=== PATIENT | male | born 1955 | race Caucasian/White ===

== ENCOUNTER 2018-11-04 10:07 | Emergency (ER) | payer OTHER, MEDICARE ==
[2018-11-04 10:12] VITALS: BP 156/91; RESP 18; TEMP 98.3
--- NOTE | 2018-11-04 10:53 | ED ---
General Adult HPI - General Chief complaint: Urogenital Stated complaint: Male Time Seen by Provider: 11/04/18 10:27 Source: patient, RN notes reviewed, old records reviewed Mode of arrival: wheelchair Limitations: no limitations - History of Present Illness Initial comments: 63-year-old male patient with past medical history significant for end-stage l iver disease secondary to chronic hepatitis C presents ED chief complaint of constipation, greater than 2 weeks since a bowel movement reportedly, swelling of testicles which has been ongoing for 3 days. Patient denies any testicular pain. Patient also reports some difficulty urinating. Patient denies any chest pain or shortness of breath. Patient reports some very mild waxing and waning pain in the suprapubic left lower quadrant regions, denies any current pain. Systemic: Pt denies fatigue, fever/chills, rash. Pt denies weakness, night sweats, weight loss. Neuro: Pt denies headache, visual disturbances, syncope or pre-syncope. HEENT: Pt denies ocular discharge or irritation, otalgia, rhinorrhea, pharyngitis or notable lymphadenopathy. Cardiopulmonary: Pt denies chest pain, SOB, heart palpitations, dyspnea on exertion. Abdominal/GI: Pt denies n/v/d. : Pt denies dysuria, burning w/ urination, frequency/urgency. Denies new onset urinary or bowel incontinence. MSK: Pt denies myalgia, loss of strength or function in extremities. Neuro: Pt denies new onset weakness, paresthesias. - Related Data Home Medications Medication Instructions Recorded Confirmed No Known Home Medications 11/04/18 11/04/18 Allergies Allergy/AdvReac Type Severity Reaction Status Date / Time No Known Allergies Allergy Verified 11/04/18 10:31 Review of Systems ROS Statement: Those systems with pertinent positive or pertinent negative responses have been documented in the HPI. ROS Other: All systems not noted in ROS Statement are negative. Past Medical History Past Medical History: Liver Disease, Renal Disease Additional Past Medical History / Comment(s): enlarged prostate History of Any Multi-Drug Resistant Organisms: None Reported Past Surgical History: Cholecystectomy Past Psychological History: No Psychological Hx Reported Smoking Status: Current every day smoker Past Alcohol Use History: Occasional Past Drug Use History: Marijuana General Exam - General Exam Comments Initial Comments: Constitutional: NAD, AOX3, Pt has pleasant affect. HEENT: NC/AT, trachea midline, neck supple, no lymphadenopathy. Posterior pharynx non erythematous, without exudates. External ears appear normal, without discharge. Mucous membranes moist. Eyes PERRLA, EOM intact. There is no scleral icterus. No pallor noted. Cardiopulmonary: RRR, no murmurs, rubs or gallops, no JVD noted. Lungs CTAB in anterior and posterior ellison. No peripheral edema. Abdominal exam: Abdomen soft and non-distended. Abdomen non-tender to palpation in all 4 quadrants. Bowel sounds active in LLQ. No hepatosplenomegaly. No ecchymosis Neuro: CN II-XII grossly intact. No nuchal rigidity. No raccon eyes, no appiah sign, no hemotympanum. No cervical spinal tenderness. MSK: No posterior calf tenderness bilaterally, homans sign negative bilaterally. Posterior tibialis and radial pulse +2 bilaterally. Sensation intact in upper and lower extremities. Full active ROM in upper and lower extremities, 5/5 stregnth. : Edematous scrotum, nontender, no blue dot sign, no masses. Limitations: no limitations Course Vital Signs 11/04/18 11/04/18 10:09 12:01 Temperature 98.3 F Pulse Rate 102 H Respiratory 18 18 Rate Blood Pressure 156/91 O2 Sat by Pulse 98 Oximetry Medical Decision Making - Medical Decision Making 63-year-old male patient with past medical history significant for end-stage liver disease secondary to chronic hepatitis C presents ED chief complaint of constipation, greater than 2 weeks since a bowel movement reportedly, swelling of testicles which has been ongoing for 3 days. Patient denies any testicular pain. Patient also reports some difficulty urinating. Patient denies any chest pain or shortness of breath. Patient reports some very mild waxing and waning pain in the suprapubic left lower quadrant regions, denies any current pain. Patient vital signs stable, afebrile. Physical exam displayed edematous scrotum, nontender. CBC noncompressive. CMP revealed elevated earlier been, liver enzymes. Lactic acid 3.8. UA displayed +2 bilirubin. Patient was rehydrated. CBC displayed no acute process. Scrotal ultrasound displayed diffuse scrotal edema seen of film a mild right hydrocele, no other focal fluid collection, benign epididymal cysts in the left. No evidence of torsion. Patient likely experiencing dependent edema. Patient will discharge with close outpatient follow-up. Case discussed in depth with Dr. Neely. - Lab Data Result diagrams: 11/04/18 11:10 11/04/18 11:10 Lab Results 11/04/18 11/04/18 11/04/18 Range/Units 11:10 11:10 11:10 WBC 8.2 (3.8-10.6) k/uL RBC 3.94 L (4.30-5.90) m/uL Hgb 13.7 (13.0-17.5) gm/dL Hct 40.7 (39.0-53.0) % MCV 103.5 H (80.0-100.0) fL MCH 34.8 (25.0-35.0) pg MCHC 33.7 (31.0-37.0) g/dL RDW 18.9 H (11.5-15.5) % Plt Count 147 L (150-450) k/uL Neutrophils % 76 % Lymphocytes % 13 % Monocytes % 6 % Eosinophils % 1 % Basophils % 0 % Neutrophils # 6.2 (1.3-7.7) k/uL Lymphocytes # 1.0 (1.0-4.8) k/uL Monocytes # 0.5 (0-1.0) k/uL Eosinophils # 0.1 (0-0.7) k/uL Basophils # 0.0 (0-0.2) k/uL Anisocytosis Slight Macrocytosis Moderate PT (9.0-12.0) sec INR (<1.2) APTT (22.0-30.0) sec Sodium 136 L (137-145) mmol/L Potassium 3.9 (3.5-5.1) mmol/L Chloride 104 (98-107) mmol/L Carbon Dioxide 23 (22-30) mmol/L Anion Gap 9 mmol/L BUN 11 (9-20) mg/dL Creatinine 0.68 (0.66-1.25) mg/dL Est GFR (CKD-EPI)AfAm >90 (>60 ml/min/1.73 sqM) Est GFR (CKD-EPI)NonAf >90 (>60 ml/min/1.73 sqM) Glucose 120 H (74-99) mg/dL Plasma Lactic Acid Saul 3.8 H* (0.7-2.0) mmol/L Calcium 8.0 L (8.4-10.2) mg/dL Total Bilirubin 6.9 H (0.2-1.3) mg/dL AST 129 H (17-59) U/L ALT 48 (21-72) U/L Alkaline Phosphatase 294 H (38-126) U/L Total Protein 6.9 (6.3-8.2) g/dL Albumin 2.3 L (3.5-5.0) g/dL Lipase 216 (23-300) U/L Urine Color Urine Appearance (Clear) Urine pH (5.0-8.0) Ur Specific [place] (1.001-1.035) Urine Protein (Negative) Urine Glucose (UA) (Negative) Urine Ketones (Negative) Urine Blood (Negative) Urine Nitrite (Negative) Urine Bilirubin (Negative) Urine Urobilinogen (<2.0) mg/dL Ur Leukocyte Esterase (Negative) Urine RBC (0-5) /hpf Urine WBC (0-5) /hpf Ur Squamous Epith Cells (0-4) /hpf Urine Mucus (None) /hpf 11/04/18 11/04/18 Range/Units 11:10 13:20 WBC (3.8-10.6) k/uL RBC (4.30-5.90) m/uL Hgb (13.0-17.5) gm/dL Hct (39.0-53.0) % MCV (80.0-100.0) fL MCH (25.0-35.0) pg MCHC (31.0-37.0) g/dL RDW (11.5-15.5) % Plt Count (150-450) k/uL Neutrophils % % Lymphocytes % % Monocytes % % Eosinophils % % Basophils % % Neutrophils # (1.3-7.7) k/uL Lymphocytes # (1.0-4.8) k/uL Monocytes # (0-1.0) k/uL Eosinophils # (0-0.7) k/uL Basophils # (0-0.2) k/uL Anisocytosis Macrocytosis PT 15.8 H (9.0-12.0) sec INR 1.6 H (<1.2) APTT 28.6 (22.0-30.0) sec Sodium (137-145) mmol/L Potassium (3.5-5.1) mmol/L Chloride (98-107) mmol/L Carbon Dioxide (22-30) mmol/L Anion Gap mmol/L BUN (9-20) mg/dL Creatinine (0.66-1.25) mg/dL Est GFR (CKD-EPI)AfAm (>60 ml/min/1.73 sqM) Est GFR (CKD-EPI)NonAf (>60 ml/min/1.73 sqM) Glucose (74-99) mg/dL Plasma Lactic Acid Saul (0.7-2.0) mmol/L Calcium (8.4-10.2) mg/dL Total Bilirubin (0.2-1.3) mg/dL AST (17-59) U/L ALT (21-72) U/L Alkaline Phosphatase (38-126) U/L Total Protein (6.3-8.2) g/dL Albumin (3.5-5.0) g/dL Lipase (23-300) U/L Urine Color Dark Brown Urine Appearance Cloudy (Clear) Urine pH 6.0 (5.0-8.0) Ur Specific [place] 1.024 (1.001-1.035) Urine Protein Trace H (Negative) Urine Glucose (UA) Negative (Negative) Urine Ketones Trace H (Negative) Urine Blood Small H (Negative) Urine Nitrite Negative (Negative) Urine Bilirubin 2+ H (Negative) Urine Urobilinogen >12.0 (<2.0) mg/dL Ur Leukocyte Esterase Trace H (Negative) Urine RBC 2 (0-5) /hpf Urine WBC 2 (0-5) /hpf Ur Squamous Epith Cells 2 (0-4) /hpf Urine Mucus Many H (None) /hpf Disposition Clinical Impression: Scrotal edema Disposition: HOME SELF-CARE Condition: Stable Instructions (If sedation given, give patient instructions): Hydrocele (ED) Additional Instructions: Patient to adhere to previously discussed treatment plan and will take medication(s) as directed. Patient to follow up with PCP in 1-2 days. Patient to return to ED if symptoms do not improve. Follow-up with primary care provider and your liver doctor tomorrow. Return to ER if condition worsens. Is patient prescribed a controlled substance at d/c from ED?: No Referrals: Ravindra Miguel DO [Primary Care Provider] - 1-2 days
--- NOTE | 2018-11-04 11:22 | XR ---
EXAMINATION TYPE: XR KUB DATE OF EXAM: 11/04/2018 11:16 AM CLINICAL HISTORY: Abdominal pain constipation for 2 weeks with history of nephrolithiasis TECHNIQUE: Single upright of the abdomen is obtained. COMPARISON: None. FINDINGS: Exam is limited secondary to patient body habitus. Cholecystectomy clips are seen in the ri ght upper quadrant. There is a mild levoscoliosis of the lumbar spine. No suspicious calcifications a re seen in the abdomen or pelvis although there is slight limitation again due to patient body habitu s. No dilated large or small bowel. Lung bases are well aerated. Degenerative changes of the spine an d hips are noted. IMPRESSION: Nonobstructive bowel gas pattern. No suspicious calcifications are seen in the abdomen or pelvis in this patient with nephrolithiasis however the exam is slightly limited secondary to patien t body habitus.
[2018-11-04 11:36] LABS: INR 1.6 (<1.2); Partial Thromboplastin Time 28.6 sec (22.0-30.0); Prothrombin Time 15.8 sec (9.0-12.0)
[2018-11-04 11:42] LABS: ALT 48 U/L (21-72); AST 129 U/L (17-59); African American GFR (CKD) >90 (>60 ml/min/1.73 sqM); Albumin 2.3 g/dL (3.5-5.0); Alkaline Phosphatase 294 U/L (38-126); Anion Gap 9 mmol/L; Blood Urea Nitrogen 11 mg/dL (9-20); Carbon Dioxide 23 mmol/L (22-30); Chloride 104 mmol/L (98-107); Glucose 120 mg/dL (74-99); Potassium 3.9 mmol/L (3.5-5.1); Sodium 136 mmol/L (137-145); Total Bilirubin 6.9 mg/dL (0.2-1.3); Total Protein 6.9 g/dL (6.3-8.2)
[2018-11-04 11:48] LABS: Anisocytosis Slight; Basophils % (A) 0 %; Eosinophils # (A) 0.1 k/uL (0-0.7); Eosinophils % (A) 1 %; HCT 40.7 % (39.0-53.0); HGB 13.7 gm/dL (13.0-17.5); Lymphocytes % (A) 13 %; MCH 34.8 pg (25.0-35.0); MCHC 33.7 g/dL (31.0-37.0); MCV 103.5 fL (80.0-100.0); Macrocytosis Moderate; Monocytes # (A) 0.5 k/uL (0-1.0); Monocytes % (A) 6 %; Neutrophils # (A) 6.2 k/uL (1.3-7.7); Neutrophils % (A) 76 %; Platelet Count 147 k/uL (150-450); RBC 3.94 m/uL (4.30-5.90); RDW 18.9 % (11.5-15.5); WBC 8.2 k/uL (3.8-10.6)
[2018-11-04] MEDS ORDERED: SODIUM CHLORIDE 0.9% 1,000 ML IV STA (12:12)
--- NOTE | 2018-11-04 12:24 | US ---
EXAMINATION TYPE: US scrotum with doppler. Grayscale and color Doppler Duplex imaging performed of argelia szymanski scrotum. DATE OF EXAM: 11/04/2018 COMPARISON: NONE CLINICAL HISTORY: swelling pain . Bilateral scrotal swelling EXAM MEASUREMENTS: TESTICLES: Right Testicle: 3.4 x 2.2 x 2.1 cm Left Testicle: 3.2 x 1.8 x 2.2 cm EPIDIDYMIS HEAD: Right Epididymis: 0.8 cm Doppler performed to assess for testicular vascularity; good bilateral color flow and waveforms are s een. There is no evidence of testicular torsion. Bilateral scrotal edema, left epididymal cyst= 1.8 x 1.6 x 1.5 cm Mild right hydrocele is seen. Diffuse scrotal edema. IMPRESSION: Diffuse scrotal edema is seen with only mild right hydrocele no other focal fluid collect ion. Benign epididymal cyst is seen on the left. No sonographic evidence of testicular torsion.
[2018-11-04 14:10] LABS: Appearance,Urine Cloudy (Clear); Bilirubin,Urine 2+ (Negative); Blood,Urine Small (Negative); Color,Urine Dark Brown; Glucose,Urine (UA) Negative (Negative); Ketones,Urine Trace (Negative); Leukocyte Esterase,Urine Trace (Negative); Mucus,Urine Many /hpf; Nitrite,Urine Negative (Negative); Protein,Urine Trace (Negative); RBC,Urine 2 /hpf (0-5); Specific Gravity,Urine 1.024 (1.001-1.035); Squamous Epithelial Cell,Urine 2 /hpf (0-4); Urobilinogen,Urine >12.0 mg/dL (<2.0); WBC,Urine 2 /hpf (0-5)
[2018-11-04 14:59] VITALS: PULSE 17
== END 2018-11-04 14:59 | disposition home or self-care (01) ==
LOC: EC 10:07
DX: N50.89 Other specified disorders of the male genital organs (principal); N43.3 Hydrocele, unspecified; N50.3 Cyst of epididymis; F17.200 Nicotine dependence, unspecified, uncomplicated
CPT/HCPCS: 36415; 74018; 76870; 80053; 81001; 83605; 83690; 85025; 85610; 85730; 93975; 96360; 96361; 99284

== ENCOUNTER 2018-11-13 09:57 | Emergency (ER) | payer OTHER, MEDICARE ==
[2018-11-13] MEDS ORDERED: MORPHINE SULFATE 4 MG/ML SYRINGE IVP STA (10:40)
[2018-11-13] MEDS ORDERED: ONDANSETRON 4 MG/2 ML VIAL IVP STA (10:40)
--- NOTE | 2018-11-13 10:48 | ED ---
Male Urogenital HPI - General Chief complaint: Urogenital Stated complaint: Male Time Seen by Provider: 11/13/18 10:12 Source: patient Mode of arrival: wheelchair Limitations: no limitations - History of Present Illness Initial comments: Patient is a 63-year-old male presenting to the emergency Department with complaints of scrotal swelling times one to 2 weeks now. Patient has past medical history of end-stage liver disease secondary to chronic hepatitis C. Patient was in the ER approximately 1 week ago for same issue. Patient did have an ultrasound performed that shows no signs of testicular torsion, diffuse scrotal edema with only a mild right hydrocele. Patient states he followed up with his PCP on Friday, Dr. Miguel, who started him on spironolactone twice a day. Patient states the medication is not working and he is having an increase amount of discomfort and pain secondary to his large scrotum. Patient denies any fever, chills, vomiting, diarrhea. Patient has no other recent changes in medications. Patient denies chest pain. Patient does admit to some mild shortness of breath secondary to pain. Patient has no other complaints at this time. Upon arrival to ER, vital signs are normal. - Related Data Home Medications Medication Instructions Recorded Confirmed No Known Home Medications 11/04/18 11/13/18 Allergies Allergy/AdvReac Type Severity Reaction Status Date / Time No Known Allergies Allergy Verified 11/13/18 10:17 Review of Systems ROS Statement: Those systems with pertinent positive or pertinent negative responses have been documented in the HPI. ROS Other: All systems not noted in ROS Statement are negative. Past Medical History Past Medical History: Liver Disease, Renal Disease Additional Past Medical History / Comment(s): enlarged prostate History of Any Multi-Drug Resistant Organisms: None Reported Past Surgical History: Cholecystectomy Past Psychological History: No Psychological Hx Reported Smoking Status: Current every day smoker Past Alcohol Use History: Occasional Past Drug Use History: Marijuana General Exam - General Exam Comments Initial Comments: GENERAL: Patient appears fatigued, frustrated, and mild distress secondary to pain. HEAD: Atraumatic, normocephalic. EYES: Pupils equal round and reactive to light, extraocular movements intact, sclera anicteric, conjunctiva are normal. ENT: TMs normal, nares patent, oropharynx clear without exudates. Moist mucous membranes. NECK: Normal range of motion, supple without lymphadenopathy or JVD. LUNGS: Breath sounds clear to auscultation bilaterally and equal. No wheezes rales or rhonchi. HEART: Regular rate and rhythm without murmurs, rubs or gallops. ABDOMEN: Soft, nontender, normoactive bowel sounds. No guarding, no rebound. No masses appreciated. EXTREMITIES: Patient has 2+ pitting edema bilateral lower extremities, right greater than left. Neurovascular intact, confirmed with Doppler on dorsal pedis. No clubbing or cyanosis. NEUROLOGICAL: Cranial nerves II through XII grossly intact. Normal speech, normal gait. PSYCH: Patient is frustrated with condition, teary eyed during exam. SKIN: Warm, Dry, normal turgor. Patient has a large Limitations: no limitations exam: Present: scrotal swelling (Large amount of scrotal swelling). Absent: urethral discharge External exam: Present: erythema (Mild erythema), swelling. Absent: lesions, lacerations, ecchymosis Course Vital Signs 11/13/18 11/13/18 11/13/18 09:59 10:02 11:44 Temperature 98.0 F 97.0 F L Pulse Rate 105 H 86 95 Respiratory 22 28 H 22 Rate Blood Pressure 135/74 142/74 143/73 O2 Sat by Pulse 99 96 96 Oximetry 11/13/18 11/13/18 13:43 14:57 Temperature 98.0 F Pulse Rate 88 93 Respiratory 18 18 Rate Blood Pressure 128/65 127/67 O2 Sat by Pulse 97 100 Oximetry Medical Decision Making - Medical Decision Making Patient is a 63-year-old male presenting with an increase in scrotal swelling times one to 2 weeks. Patient was in the ER approximately 1 week ago for same issue. Patient did have ultrasound at that time and showed no signs of testicular torsion, mild hydrocele. Patient states he saw his PCP on Friday and started him on spironolactone twice a day. Patient states this is not improving him symptoms. Patient states he has a hard time using the restroom and just sitting secondary to his large scrotum. On exam patient has a large amount of scrotal swelling, mild erythema and irritation of the scrotal sac. Patient has 2+ pitting edema in both lower extremities. Neurovascular intact. Patient is teary-eyed and frustrated on exam. Vital signs are within normal limits. CBC, CMP are not impressive. Patient's lactic acid was 3.7. Patient was given fluids. Patient continues to have elevated liver enzymes. UA shows no signs of infection. Case was discussed with Dr. Lloyd. Discussed with patient that his symptoms are secondary to his liver failure. It was discussed that he needs to follow up with his PCP and patient was also given a referral to urology. Patient is very frustrated with this recommendation and that there is nothing to do today. Patient will continue with his spironolactone. Return parameters were discussed with the patient he verbalizes understanding. Patient is stable for discharge at this time. - Lab Data Result diagrams: 11/13/18 12:05 11/13/18 12:05 Lab Results 11/13/18 11/13/18 11/13/18 Range/Units 12:05 12:05 12:05 WBC 10.0 (3.8-10.6) k/uL RBC 4.03 L (4.30-5.90) m/uL Hgb 13.6 (13.0-17.5) gm/dL Hct 41.2 (39.0-53.0) % MCV 102.3 H (80.0-100.0) fL MCH 33.8 (25.0-35.0) pg MCHC 33.1 (31.0-37.0) g/dL RDW 17.6 H (11.5-15.5) % Plt Count 114 L (150-450) k/uL Neutrophils % 74 % Lymphocytes % 10 % Monocytes % 10 % Eosinophils % 1 % Basophils % 1 % Neutrophils # 7.4 (1.3-7.7) k/uL Lymphocytes # 1.0 (1.0-4.8) k/uL Monocytes # 1.0 (0-1.0) k/uL Eosinophils # 0.1 (0-0.7) k/uL Basophils # 0.1 (0-0.2) k/uL Anisocytosis Slight Macrocytosis Moderate PT 16.0 H (9.0-12.0) sec INR 1.6 H (<1.2) APTT 31.3 H (22.0-30.0) sec Sodium 134 L (137-145) mmol/L Potassium 3.7 (3.5-5.1) mmol/L Chloride 101 (98-107) mmol/L Carbon Dioxide 24 (22-30) mmol/L Anion Gap 9 mmol/L BUN 24 H (9-20) mg/dL Creatinine 0.74 (0.66-1.25) mg/dL Est GFR (CKD-EPI)AfAm >90 (>60 ml/min/1.73 sqM) Est GFR (CKD-EPI)NonAf >90 (>60 ml/min/1.73 sqM) Glucose 127 H (74-99) mg/dL Lactic Ac Sepsis Rflx Plasma Lactic Acid Saul (0.7-2.0) mmol/L Calcium 8.0 L (8.4-10.2) mg/dL Total Bilirubin 6.8 H (0.2-1.3) mg/dL AST 148 H (17-59) U/L ALT 54 (21-72) U/L Alkaline Phosphatase 256 H (38-126) U/L Total Protein 6.9 (6.3-8.2) g/dL Albumin 2.3 L (3.5-5.0) g/dL Amylase 50 (30-110) U/L Lipase 276 (23-300) U/L Urine Color Urine Appearance (Clear) Urine pH (5.0-8.0) Ur Specific [place] (1.001-1.035) Urine Protein (Negative) Urine Glucose (UA) (Negative) Urine Ketones (Negative) Urine Blood (Negative) Urine Nitrite (Negative) Urine Bilirubin (Negative) Urine Urobilinogen (<2.0) mg/dL Ur Leukocyte Esterase (Negative) Urine RBC (0-5) /hpf Urine WBC (0-5) /hpf Ur Squamous Epith Cells (0-4) /hpf Urine Bacteria (None) /hpf Urine Mucus (None) /hpf 11/13/18 11/13/18 11/13/18 Range/Units 12:05 13:21 13:45 WBC (3.8-10.6) k/uL RBC (4.30-5.90) m/uL Hgb (13.0-17.5) gm/dL Hct (39.0-53.0) % MCV (80.0-100.0) fL MCH (25.0-35.0) pg MCHC (31.0-37.0) g/dL RDW (11.5-15.5) % Plt Count (150-450) k/uL Neutrophils % % Lymphocytes % % Monocytes % % Eosinophils % % Basophils % % Neutrophils # (1.3-7.7) k/uL Lymphocytes # (1.0-4.8) k/uL Monocytes # (0-1.0) k/uL Eosinophils # (0-0.7) k/uL Basophils # (0-0.2) k/uL Anisocytosis Macrocytosis PT (9.0-12.0) sec INR (<1.2) APTT (22.0-30.0) sec Sodium (137-145) mmol/L Potassium (3.5-5.1) mmol/L Chloride (98-107) mmol/L Carbon Dioxide (22-30) mmol/L Anion Gap mmol/L BUN (9-20) mg/dL Creatinine (0.66-1.25) mg/dL Est GFR (CKD-EPI)AfAm (>60 ml/min/1.73 sqM) Est GFR (CKD-EPI)NonAf (>60 ml/min/1.73 sqM) Glucose (74-99) mg/dL Lactic Ac Sepsis Rflx Y Plasma Lactic Acid Saul 3.7 H* (0.7-2.0) mmol/L Calcium (8.4-10.2) mg/dL Total Bilirubin (0.2-1.3) mg/dL AST (17-59) U/L ALT (21-72) U/L Alkaline Phosphatase (38-126) U/L Total Protein (6.3-8.2) g/dL Albumin (3.5-5.0) g/dL Amylase (30-110) U/L Lipase (23-300) U/L Urine Color Dark Brown Urine Appearance Turbid (Clear) Urine pH 5.5 (5.0-8.0) Ur Specific [place] 1.025 (1.001-1.035) Urine Protein Trace H (Negative) Urine Glucose (UA) Negative (Negative) Urine Ketones Negative (Negative) Urine Blood Moderate H (Negative) Urine Nitrite Negative (Negative) Urine Bilirubin 2+ H (Negative) Urine Urobilinogen 12.0 (<2.0) mg/dL Ur Leukocyte Esterase Trace H (Negative) Urine RBC 17 H (0-5) /hpf Urine WBC 3 (0-5) /hpf Ur Squamous Epith Cells 1 (0-4) /hpf Urine Bacteria Rare H (None) /hpf Urine Mucus Few H (None) /hpf Disposition Clinical Impression: Scrotal edema, Chronic hepatitis, Hydrocele Disposition: HOME SELF-CARE Condition: Stable Instructions (If sedation given, give patient instructions): Hydrocele (ED) Additional Instructions: Please return to the Emergency Department if symptoms worsen or any other concerns. Follow-up with urology as discussed today or tomorrow. Follow-up with Dr. Miguel. Is patient prescribed a controlled substance at d/c from ED?: No Referrals: Ravindra Miguel DO [Primary Care Provider] - 1-2 days Zeus Chaudhary MD [STAFF PHYSICIAN] - 1-2 days
[2018-11-13 12:27] LABS: Anisocytosis Slight; Basophils # (A) 0.1 k/uL (0-0.2); Basophils % (A) 1 %; Eosinophils # (A) 0.1 k/uL (0-0.7); Eosinophils % (A) 1 %; HCT 41.2 % (39.0-53.0); HGB 13.6 gm/dL (13.0-17.5); Lymphocytes % (A) 10 %; MCH 33.8 pg (25.0-35.0); MCHC 33.1 g/dL (31.0-37.0); MCV 102.3 fL (80.0-100.0); Macrocytosis Moderate; Monocytes % (A) 10 %; Neutrophils # (A) 7.4 k/uL (1.3-7.7); Neutrophils % (A) 74 %; Platelet Count 114 k/uL (150-450); RBC 4.03 m/uL (4.30-5.90); RDW 17.6 % (11.5-15.5)
[2018-11-13 12:34] LABS: INR 1.6 (<1.2); Partial Thromboplastin Time 31.3 sec (22.0-30.0)
[2018-11-13 13:03] LABS: African American GFR (CKD) >90 (>60 ml/min/1.73 sqM); Albumin 2.3 g/dL (3.5-5.0); Amylase 50 U/L (30-110); Anion Gap 9 mmol/L; Blood Urea Nitrogen 24 mg/dL (9-20); Carbon Dioxide 24 mmol/L (22-30); Chloride 101 mmol/L (98-107); Glucose 127 mg/dL (74-99); Sodium 134 mmol/L (137-145); Total Bilirubin 6.8 mg/dL (0.2-1.3); Total Protein 6.9 g/dL (6.3-8.2)
[2018-11-13 13:09] LABS: ALT 54 U/L (21-72); AST 148 U/L (17-59); Potassium 3.7 mmol/L (3.5-5.1)
[2018-11-13 13:10] LABS: Alkaline Phosphatase 256 U/L (38-126)
[2018-11-13] MEDS ORDERED: SODIUM CHLORIDE 0.9% 1,000 ML IV STA (13:23)
[2018-11-13 13:44] VITALS: RESP 18
[2018-11-13 14:14] LABS: Appearance,Urine Turbid (Clear); Bacteria,Urine Rare /hpf; Bilirubin,Urine 2+ (Negative); Blood,Urine Moderate (Negative); Color,Urine Dark Brown; Glucose,Urine (UA) Negative (Negative); Ketones,Urine Negative (Negative); Leukocyte Esterase,Urine Trace (Negative); Mucus,Urine Few /hpf; Nitrite,Urine Negative (Negative); PH, Urine 5.5 (5.0-8.0); Protein,Urine Trace (Negative); RBC,Urine 17 /hpf (0-5); Specific Gravity,Urine 1.025 (1.001-1.035); Squamous Epithelial Cell,Urine 1 /hpf (0-4)
[2018-11-13 14:58] VITALS: BP 127/67; PULSE 93; TEMP 98
== END 2018-11-13 15:11 | disposition home or self-care (01) ==
LOC: EC 09:57
DX: N43.3 Hydrocele, unspecified (principal); B18.2 Chronic viral hepatitis C; K72.90 Hepatic failure, unspecified without coma; F17.200 Nicotine dependence, unspecified, uncomplicated; Z90.49 Acquired absence of other specified parts of digestive tract
CPT/HCPCS: 36415; 80053; 82150; 83605; 83690; 85025; 85610; 85730; 81001; 99284; 96374; 96375; 96361; J2270; J2405